=== PATIENT | male | born 1945 | race Caucasian/White ===

== ENCOUNTER 2018-11-28 15:37 | Emergency (ER) | payer MEDICARE, BC ==
--- NOTE | 2018-11-28 16:11 | EDM.PDOC ---
ED HPI GENERAL MEDICAL PROBLEM - General Chief Complaint: Upper Extremity Injury/Pain Stated Complaint: LEFT WRIST SWOLLEN Time Seen by Provider: 11/28/18 16:08 Source of Information: Reports: Patient History Limitations: Reports: No Limitations - History of Present Illness INITIAL COMMENTS - FREE TEXT/NARRATIVE: 73-year-old male who reports was just in the hospital at [facility] from Thursday to of last week for anemia. He had an IV placed in his wrist and forearm area and had blood transfusions. He also had EGD and colonoscopy performed which were negative. His blood count stabilized at 8 and he was discharged on of last week. On the following day he noticed some tightness and maybe some swelling and his left wrist area the swelling seemed to worsen through the day yesterday and then today he noticed redness and the rest that has rather rapidly progressed since this morning. The pain has worsened as well. He rates the pain as a 5/10. It is a sharp pain. It is worse with palpation and movement. The redness seems to be progressing into his distal forearm and he notices that there is soreness along the ulnar aspect of his forearm going to his elbow. He has had no fevers or chills. There has been no nausea or vomiting. There are no other acute joint issues and no other areas of redness or swelling. There are no other associated signs or symptoms. There are no other modifying factors. Onset: Today Duration: Getting Worse Location: Reports: Upper Extremity, Left (Left wrist) Quality: Reports: Ache, Sharp, Throbbing Severity: Moderate Improves with: Reports: Rest Worsens with: Reports: Other (Palpation), Movement Context: Reports: Other (As above) Associated Symptoms: Reports: No Other Symptoms Treatments [employer]: Reports: Other (see below) (Nothing) Left Wrist Pain Score (Numeric/FACES): 5 - Related Data Allergies Allergy/AdvReac Type Severity Reaction Status Date / Time No Known Allergies Allergy Verified 11/28/18 16:08 Past Medical History Cardiovascular History: Reports: Hypertension, Other (See Below) (Valvular heart disease (mitral valve)) - Infectious Disease History Infectious Disease History: Reports: Other (See Below) (Patient is receiving daptomycin via PICC line for left shoulder infection) - Past Surgical History GI Surgical History: Reports: Colonoscopy, EGD Male Surgical History: Reports: Other (See Below) (Right orchiectomy) Musculoskeletal Surgical History: Reports: Shoulder Surgery (Left) Social & Family History - Tobacco Use Smoking Status *Q: Never Smoker - Alcohol Use Alcohol Use History: Yes Alcohol Use Frequency: Weekly (But reports since he has been getting IV antibody therapy he has not been drinking alcohol.) - Living Situation & Occupation Living situation: Reports: Occupation: Retired Review of Systems - Review of Systems Review Of Systems: See Below Constitutional: Reports: No Symptoms Eyes: Reports: No Symptoms Ears: Reports: No Symptoms Nose: Reports: No Symptoms Mouth/Throat: Reports: No Symptoms Respiratory: Reports: No Symptoms Cardiovascular: Reports: No Symptoms GI/Abdominal: Reports: No Symptoms Genitourinary: Reports: No Symptoms Musculoskeletal: Reports: Joint Pain (Left wrist), Joint Swelling (Left wrist) Skin: Reports: Erythema (And swelling over left wrist) Neurological: Reports: No Symptoms ED EXAM, GENERAL - Physical Exam Exam: See Below Exam Limited By: No Limitations General Appearance: Alert, WD/WN, Mild Distress (Pain) Eye Exam: Bilateral Eye: EOMI, Normal Inspection, PERRL Ears: Normal External Exam, Hearing Grossly Normal Ear Exam: Bilateral Ear: Auricle Normal Nose: Normal Inspection, Normal Mucosa, No Blood Throat/Mouth: Normal Inspection, Normal Lips, Normal Oropharynx, Normal Voice, No Airway Compromise Head: Atraumatic, Normocephalic Neck: Normal Inspection, Supple, Non-Tender, Full Range of Motion Respiratory/Chest: No Respiratory Distress, Lungs Clear, Normal Breath Sounds, No Accessory Muscle Use Cardiovascular: Normal Peripheral Pulses, Regular Rate, Rhythm, No JVD, Systolic Murmur (Chronic, mitral valve) Peripheral Pulses: 2+: Radial (L), Radial (R) GI/Abdominal: Normal Bowel Sounds, Soft, Non-Tender, No Mass Back Exam: Normal Inspection Extremities: No Pedal Edema, Normal Capillary Refill, Limited Range of Motion ( Left wrist), Increased Warmth (Left wrist), Redness (Left wrist), Other ( Effusion and left wrist) Neurological: Alert, Oriented, CN II-XII Intact, Normal Cognition, No Motor/ Sensory Deficits Skin Exam: Warm, Dry, Intact, No Rash, Erythema (Left wrist), Increased Warmth ( Left wrist) Lymphatic: Adenopathy (Left epitrochlear) Course - Vital Signs Last Recorded V/S: Last Vital Signs Temp 36.7 C 11/28/18 16:00 Pulse 95 11/28/18 16:00 Resp 18 11/28/18 16:00 BP 146/70 H 11/28/18 16:00 Pulse Ox 100 11/28/18 16:00 - Orders/Labs/Meds Orders: Active Orders 24 hr Category Date Time Status Wrist Comp Min 3V Lt [CR] Stat Exams 11/28/18 16:53 Taken CULTURE BLOOD [BC] Urgent Lab 11/28/18 17:05 Received CULTURE BLOOD [BC] Urgent Lab 11/28/18 17:11 Received Blood Culture x2 Reflex Set [OM.PC] Urgent Oth 11/28/18 16:53 Ordered Labs: Laboratory Tests 11/28/18 11/28/18 11/28/18 Range/Units 17:05 17:05 17:05 WBC 8.2 (4.5-12.0) X10-3/uL RBC 3.06 L (4.30-5.75) x10(6)uL Hgb 9.1 L (13.5-17.8) g/dL Hct 28.0 L (30.0-51.3) % MCV 91.6 (80-96) fL MCH 29.8 (27.7-33.6) pg MCHC 32.5 (32.2-35.4) g/dL RDW 15.6 H (11.5-15.5) % Plt Count 360 (125-369) X10(3)uL MPV 6.5 L (7.4-10.4) fL Neut % (Auto) 68.6 (46-82) % Lymph % (Auto) 14.7 (13-37) % [place] % (Auto) 11.0 (4-12) % Eos % (Auto) 2 (1.0-5.0) % Baso % (Auto) 3 H (0-2) % Neut # (Auto) 5.6 (1.6-8.3) # Lymph # (Auto) 1.2 (0.6-5.0) # [place] # (Auto) 0.9 (0.0-1.3) # Eos # (Auto) 0.2 (0.0-0.8) # Baso # (Auto) 0.3 H (0.0-0.2) # Sodium 138 (135-145) mmol/L Potassium 4.0 (3.5-5.3) mmol/L Chloride 103 (100-110) mmol/L Carbon Dioxide 28 (21-32) mmol/L BUN 16 (7-18) mg/dL Creatinine 1.3 (0.70-1.30) mg/dL Est Cr Clr Drug Dosing 50.69 mL/min Estimated GFR (MDRD) 54 L (>60) BUN/Creatinine Ratio 12.3 (9-20) Glucose 95 (80-116) mg/dL Calcium 9.2 (8.6-10.2) mg/dL C-Reactive Protein 3.7 H* (0.5-0.9) mg/dL - Radiology Interpretation Free Text/Narrative:: Left wrist x-ray shows DJD but no fracture or definite lesion. - Re-Assessments/Exams Free Text/Narrative Re-Assessment/Exam: 11/28/18 17:15: Patient's blood tests are suggestive of inflammation/infection. The patient's exam is quite concerning for septic arthritis in his left wrist. The patient will need evaluation which would include arthrocentesis and joint fluid analysis and will need orthopedic specially services and abdominal I&D of this left wrist. All analysis of joint fluid at this facility are send out labs and there is no orthopedic specialty available at [facility] at this time. Therefore the patient will need to be transferred to a facility where the services are available. I discussed this with the patient and he would prefer to discuss his case with the doctors at [facility]. It should be noted routine blood tests were performed. Blood cultures 2 were obtained with 1 blood culture drawn from the PICC line and one ink drawn from periphery. The patient also had a left wrist x-ray performed and the x-rays were "pushed" to [facility] 11/28/18 17:35: I discussed the patient's case with Dr. Ruano, ED physician at [facility], and he has agreed to accept the patient and arrange the patient's direct admission to [facility] for continued workup and treatment of this probable left wrist septic arthritis. 11/28/18 17:45: I discussed the above with the patient. The patient does not look toxic at this time. I feel that he could be taken via private vehicle to [facility]. The patient plans on his taking him. The patient is to go directly to [facility] for direct admission. I will advise him to remain NPO. Departure - Departure Time of Disposition: 18:20 Disposition: DC/Tfer to Acute Hospital 02 Condition: Fair (Stable) Clinical Impression: Cellulitis of left wrist Septic arthritis of wrist, left Qualifiers: Septic arthritis organism: due to unspecified organism Qualified Code(s): M00.9 - Pyogenic arthritis, unspecified - Discharge Information Referrals: Benjy Espinal MD [Primary Care Provider] - Forms: ED Department Discharge Additional Instructions: Go directly to [facility] for direct admission. Do not eat or drink anything until cleared by the doctors at [facility]. - My Orders Last 24 Hours: My Active Orders 11/28/18 16:53 Wrist Comp Min 3V Lt [CR] Stat Blood Culture x2 Reflex Set [OM.PC] Urgent 11/28/18 17:05 CULTURE BLOOD [BC] Urgent 11/28/18 17:11 CULTURE BLOOD [BC] Urgent - Assessment/Plan Last 24 Hours: My Active Orders 11/28/18 16:53 Wrist Comp Min 3V Lt [CR] Stat Blood Culture x2 Reflex Set [OM.PC] Urgent 11/28/18 17:05 CULTURE BLOOD [BC] Urgent 11/28/18 17:11 CULTURE BLOOD [BC] Urgent
--- NOTE | 2018-11-30 09:23 | CR ---
INDICATION: Left wrist swelling and redness, question septic joint from knuckles to wrist area, IV was located in that hand from Thursday to in hospital. LEFT WRIST: Three views of the left wrist were obtained, 11/28/18 - no comparisons. Degenerative changes are noted at the first metacarpocarpal joint of moderate to moderately severe degree with degenerative changes also noted at the metacarpophalangeal joints and most prominent at the 2nd, 3rd, and 4th metacarpophalangeal joints but also to a mild degree at the 1st metacarpophalangeal joint. Degenerative changes are also seen at the PIPJs and DIPJs in general. No definite evidence of osteomyelitis is identified. The possibility of a minimal wrist joint effusion is difficult to exclude with very slight prominence of the volar fat pad at the wrist. This should be correlated clinically. If osteomyelitis is suspected clinically, 3 phase nuclear bone imaging may be helpful for further evaluation, as may MRI. MTDD
== END 2018-11-28 18:38 ==
LOC: FB.ED 15:37
DX: L03.114 Cellulitis of left upper limb (principal); M00.9 Pyogenic arthritis, unspecified; I10 Essential (primary) hypertension
CPT/HCPCS: 36415; 73110-LT; 80048; 85025; 86140; 87040; 99284-25